=== PATIENT | male | born 1995 | race African-American/Black ===

== ENCOUNTER 2022-05-21 15:10 | Emergency (ER) | payer BC ==
[~2022-05-21] VITALS: Ht 180.3 cm; Wt 127.0 kg
[2022-05-21] MEDS ORDERED: ASPIRIN 325MG EC TABLET PO ONE (18:00)
[2022-05-21 18:36] LABS: CHLORIDE 105 mEq/L (98-107)
[2022-05-21 18:45] LABS: BASOPHILS % 0.2 % (0.0-2.0); EOSINOPHILS % 0.4 % (0.0-5.0); HEMATOCRIT. 42.1 % (42.0-52.0); LYMPHOCYTES % 24.2 % (20.0-50.0); MEAN CORPUSCULAR HEMOGLOBIN 28.5 pg (28.0-32.0); MEAN PLATELET VOLUME 7.6 fl (7.4-10.4); NEUTROPHILS % 69.2 % (40.0-76.0); PLATELET 317 x1000/uL (130-400); RED CELL DISTRIBUTION WIDTH 14.7 % (11.6-14.6)
[2022-05-21 19:16] VITALS: BP 137/78
== END 2022-05-21 19:18 | disposition home or self-care (01) ==
LOC: ER 15:10
DX: R07.89 Other chest pain (principal); R06.00 Dyspnea, unspecified
CPT/HCPCS: 36415; 71045; 80053; 83880; 84484; 85025; 85379; 93005; 99285